=== PATIENT | female | born 1975 | race Caucasian/White ===

== ENCOUNTER 2017-06-23 15:11 | Emergency (ER) | payer BC, OTHER ==
[~2017-06-23] VITALS: Ht 170.2 cm; Wt 62.2 kg
[2017-06-23 15:39] VITALS: Ht 170.2 cm; Wt 62.2 kg
[2017-06-23] MEDS ORDERED: LIDOCAINE 1% (MDV) 20 ML INJ SC ONE (17:00)
--- NOTE | 2017-06-23 17:24 | RADRPT ---
PROCEDURE: CT Brain without contrast. CLINICAL INDICATION: Headaches. Neurologic deficit TECHNIQUE: A CT of the brain was performed on multidetector high-resolution CT scanner utilizing a xial sections from the skull base through the vertex without contrast. One or more of the following dose reduction techniques were used: Automated exposure control, Adjustment of the mA and/or kV acc ording to patient size, and/or use of iterative reconstruction technique. DICOM images are available . DOSE: CTDI = 44 mGy and the DLP = 720 mGy-cm. COMPARISON: None available FINDINGS: No acute intracranial hemorrhage, significant mass effect or midline shift. The lamb-white different iation is grossly preserved. The ventricles are normal in size for age. No significant opacification of the visualized paranasal sinuses or mastoids. IMPRESSION: No acute intracranial findings. RPTAT: AA .Gallito Ledesma MD, MD Date Time Electronically viewed and signed by .Gallito Ledesma MD, on 06/23/2017 17:23 .T/
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
[2017-06-23] MEDS ORDERED: HYDR-906 PO (19:37)
--- NOTE | 2017-06-23 19:51 | RADRPT ---
PROCEDURE: XR Right Foot. CLINICAL INDICATION: Laceration. Possible glass foreign body.. TECHNIQUE: AP, lateral and oblique views of the right foot was obtained. The images were reviewed on a PACS workstation. COMPARISON: None. FINDINGS: There are no fractures. Joint relationships are maintained. Bone mineralization is within normal l imits. Soft tissues are unremarkable. No radiopaque foreign body. IMPRESSION: No acute abnormality. No radiopaque foreign body. RPTAT: HMVK .Cole Kim MD, Date Time Electronically viewed and signed by .Cole Kim MD, on 06/23/2017 19:50 .K/
[2017-06-23] MEDS ORDERED: DIPHTH/TET/ACEL PERTUSS (ADULT) 0.5 ML VIAL IM* ONE (20:00)
[2017-06-23 20:11] VITALS: BP 121/66; PULSE 68; RESP 20
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
== END 2017-06-23 20:13 | disposition home or self-care (01) ==
LOC: FTE 15:11
DX: S91.311A Laceration without foreign body, right foot, initial encounter (principal); R41.82 Altered mental status, unspecified; V43.62XA Car passenger injured in collision with other type car in traffic accident, initial encounter
CPT/HCPCS: 70450; 72125; 73630; 90471; 90715